=== PATIENT | female | born 1980 | race Caucasian/White ===

== ENCOUNTER 2016-08-03 22:14 | Emergency (ER) | payer OTHER ==
[~2016-08-03] VITALS: Ht 172.7 cm; Wt 78.6 kg
[~2016-08-03 22:14] MED LIST: AMITRIPTYLINE50 MG PO; BENTYL 20MG20 MG/TAB PO; CARDI-OMEGA1000 MG PO; CEFTIN500 MG PO; CEPHALEXIN500 M1 PO; CIPRO 500MG TA500 MG PO; CLARINEX 5MG5 MG PO; COLACE100 MG PO; D BIOTIN PO; DAYPRO600 MG PO; DEPAKOTE DR500 MG PO; DESYREL 100MG100 MG PO; DESYREL 50MG50 MG PO; DOXYCYCLINE 10100 MG PO; DULCOLAX S10 MG/SUPP RC; FLAGYL500 MG PO; FLEXERIL 1010 MG/TAB PO; GABAPENTIN300 M1 PO; LAMICTAL; LEVAQUIN 2250 MG/TAB PO; LEXAPRO 10MG10 MG PO; LINZESS290CAP PO; LIZNESS; LORTAB 5/500 501 TAB PO; MAXALT10 MG; MAXALT10 MG PO; MAXALT5 MG PO; MOTRIN 800800 MG/TAB PO; MS CONTIN 330 MG/TAB PO; NAPROSYN500 MG PO; NAPROXEN 3375 MG/TAB PO; NATURE'S BLEND1 SG3 PO; NEURONTIN; NEURONTIN300 MG/CAP PO; NO HOME MEDICATIONS; NORCO 325 MG-51 TAB PO; NORCO 325 MG-7.1 TAB PO; OSTEO-BI-FLEX 21 TAB PO; OXY IR5 MG PO; OXYCODONE; PARAFON FORTE500 M1 PO; PERCOCET 325 MG1 TA2 PO; PERCOCET 5/321 UDTAB PO; PHENERGAN 25 TA25 MG PO; PREDNISONE20 MG PO; PRILOTC; PROMETHAZINE12.5 M5 PO; PROTONIX 40MG T40 MG PO; REGLAN 10MG10 MG/TAB PO; SYNTHROID0.05 MG/TA PO; THEOPHYLINE; TOPAMAX100 MG PO; TOPAMAX200 MG PO; ULTRAM 50MG TAB50 MG PO; ZITHROMAX 250M250 MG PO; ZOFRAN 4MG T4 MG/TAB PO; ZOFRAN ODT8 MG PO
[2016-08-03 22:17] VITALS: BP 150/92; PULSE 90; TEMP 97.5
[2016-08-03 23:15] LABS: HEMATOCRIT 38.2 % (37.0-47.0); HEMOGLOBIN 12.5 g/dl (12.5-16.0); MEAN CELL VOLUME 98 fl (80.0-100.0); MEAN CORPUSCULAR HEMOGLOBIN 32 pg (27.0-31.0); MEAN CORPUSCULAR HGB CONC 33 g/dl (33.0-37.0); MEAN PLATELET VOLUME 10.9 fl (7.4-10.4); PLATELET COUNT 227 K/mm3 (130-400); RED BLOOD COUNT 3.91 M/mm3 (4.10-5.30); WHITE BLOOD COUNT 10.7 K/mm3 (4.8-10.8)
[2016-08-03] MEDS ORDERED: ULTRAM 50MG TAB50 MG PO (23:30)
[2016-08-03] MEDS ORDERED: ZOFRAN8 MG PO (23:30)
[2016-08-03 23:39] LABS: ADD PATHOLOGY DIFF REVIEW NO
[2016-08-03 23:48] LABS: ALBUMIN 4.1 gm/dL (3.5-5.0); BILIRUBIN,TOTAL 0.7 mg/dL (0.0-1.0); C-REACTIVE PROTEIN 0.8 mg/dL (0.0-0.9); CALCIUM 9.1 mg/dL (8.4-10.2); CREATININE, serum 0.68 mg/dL (0.52-1.25); POTASSIUM 3.8 mmol/L (3.4-5.0); TOTAL PROTEIN 7.5 gm/dL (6.4-8.2)
[2016-08-04 00:04] LABS: BAND 2 % (0-10); BASOPHIL 1 % (0-2); EOSINOPHIL 3 % (0-4); NEUTROPHILS 56 % (42.0-75.2); PLATELET ESTIMATE NORMAL (NORMAL); TOTAL CELLS COUNTED 100
[2016-08-04 00:27] LABS: ERYTHROCYTE SEDIMENTATION RATE 8 mm/hr (0-20)
== END 2016-08-04 00:47 | disposition home or self-care (01) ==
LOC: COL.ER 22:14
PROVIDERS: Emergency Medicine
DX: R10.31 Right lower quadrant pain (principal)
CPT/HCPCS: J1630; J1885; J2405; J7030

== ENCOUNTER 2016-08-07 22:17 | Emergency (ER) | payer OTHER ==
[~2016-08-07] VITALS: Ht 172.7 cm; Wt 78.6 kg
[~2016-08-07 22:17] MED LIST changes: +ZOFRAN8 MG PO
[2016-08-07 22:23] VITALS: TEMP 98.1
[2016-08-08 00:16] VITALS: BP 128/81; PULSE 77
== END 2016-08-08 00:19 | disposition home or self-care (01) ==
LOC: COL.ER 22:17
DX: R51 Headache (principal)
CPT/HCPCS: J1100; J1200; J1885; J2405; J2550; J2765; J7030

== ENCOUNTER 2016-08-13 21:35 | Emergency (ER) | payer OTHER ==
[~2016-08-13] VITALS: Ht 172.7 cm; Wt 78.6 kg
[2016-08-13 21:38] VITALS: BP 169/105; TEMP 97.9
[2016-08-13 23:01] VITALS: PULSE 88
== END 2016-08-13 23:02 | disposition home or self-care (01) ==
LOC: COL.ER 21:35
DX: G43.909 Migraine, unspecified, not intractable, without status migrainosus (principal); F17.210 Nicotine dependence, cigarettes, uncomplicated
CPT/HCPCS: J1200; J1885; J2060; J2550

== ENCOUNTER 2016-08-17 20:55 | Emergency (ER) | payer OTHER ==
[~2016-08-17] VITALS: Ht 172.7 cm; Wt 78.6 kg
[2016-08-17 21:02] VITALS: TEMP 98.1
[2016-08-17 22:21] LABS: BASO # 0.1 (0.0-0.2); BASO % 1.2 % (0.0-2.0); EOS # 0.4 (0.0-0.7); GRAN # 6.5 (1.4-6.5); GRAN % 56.4 % (42.2-75.2); HEMATOCRIT 40.9 % (37.0-47.0); HEMOGLOBIN 13.6 g/dl (12.5-16.0); LYMPH # 3.7 (1.2-3.4); LYMPH % 31.6 % (20.0-51.0); MEAN CELL VOLUME 97 fl (80.0-100.0); MEAN CORPUSCULAR HEMOGLOBIN 32 pg (27.0-31.0); MEAN CORPUSCULAR HGB CONC 33 g/dl (33.0-37.0); MEAN PLATELET VOLUME 11.2 fl (7.4-10.4); MONO # 0.9 (0.1-0.6); MONO % 7.4 % (1.7-9.3); PLATELET COUNT 256 K/mm3 (130-400); RED BLOOD COUNT 4.24 M/mm3 (4.10-5.30); REDCELL DISTRIBUTION WIDTH-CV 13.7 % (11.5-14.5); WHITE BLOOD COUNT 11.6 K/mm3 (4.8-10.8)
[2016-08-17 22:37] LABS: ADJUSTED CALCIUM 9.3 mg/dL (8.4-10.2); ALANINE AMINOTRANSFERASE 35 U/L (9-52); ALBUMIN 4.5 gm/dL (3.5-5.0); ALKALINE PHOSPHATASE 51 U/L (50-136); ANION GAP 11 mmol/L (7-16); BILIRUBIN,TOTAL 0.8 mg/dL (0.0-1.0); BLOOD UREA NITROGEN 8 mg/dL (7-17); CALCIUM 9.7 mg/dL (8.4-10.2); CARBON DIOXIDE 25 mmol/L (22-30); CHLORIDE 105 mmol/L (98-107); CREATININE, serum 0.72 mg/dL (0.52-1.25); GLUCOSE 85 mg/dL (74-106); LIPASE 65 U/L (23-300); POTASSIUM 3.8 mmol/L (3.4-5.0); SODIUM 141 mmol/L (137-145); TOTAL PROTEIN 8.1 gm/dL (6.4-8.2)
[2016-08-17 22:47] LABS: TROPONIN-I < 0.012 ng/mL (0.000-0.034)
[2016-08-17] MEDS ORDERED: PROTONIX 40MG T40 MG PO (22:54)
[2016-08-17 23:07] VITALS: BP 131/94; PULSE 96
== END 2016-08-17 23:08 | disposition home or self-care (01) ==
LOC: COL.ER 20:55
PROVIDERS: Emergency Medicine
DX: R07.9 Chest pain, unspecified (principal); G43.909 Migraine, unspecified, not intractable, without status migrainosus; F17.210 Nicotine dependence, cigarettes, uncomplicated

== ENCOUNTER 2016-08-24 21:57 | Emergency (ER) | payer SELFPAY ==
[~2016-08-24] VITALS: Ht 172.7 cm; Wt 78.6 kg
[2016-08-24 22:09] VITALS: BP 141/75; PULSE 111; TEMP 97.9
== END 2016-08-24 23:29 | disposition left against medical advice (07) ==
LOC: COL.ER 21:57
DX: Z53.9 Procedure and treatment not carried out, unspecified reason (principal)

== ENCOUNTER 2016-09-02 17:58 | Emergency (ER) | payer OTHER ==
[~2016-09-02] VITALS: Ht 172.7 cm; Wt 90.9 kg
[2016-09-02 18:00] VITALS: TEMP 98.1
[2016-09-02 19:01] VITALS: BP 141/65; PULSE 91
== END 2016-09-02 19:02 | disposition home or self-care (01) ==
LOC: COL.ER 17:58
DX: G43.909 Migraine, unspecified, not intractable, without status migrainosus (principal); F17.210 Nicotine dependence, cigarettes, uncomplicated
CPT/HCPCS: J1885

== ENCOUNTER 2016-09-06 11:12 | Emergency (ER) | payer OTHER ==
[~2016-09-06] VITALS: Ht 172.7 cm; Wt 78.6 kg
[2016-09-06 11:14] VITALS: TEMP 98.3
[2016-09-06 11:50] LABS: BASO # 0.1 (0.0-0.2); BASO % 1.1 % (0.0-2.0); EOS # 0.3 (0.0-0.7); EOS % 2.9 % (0-4.0); GRAN # 6.6 (1.4-6.5); GRAN % 62.1 % (42.2-75.2); HEMATOCRIT 37.5 % (37.0-47.0); HEMOGLOBIN 12.6 g/dl (12.5-16.0); LYMPH # 2.6 (1.2-3.4); LYMPH % 24.8 % (20.0-51.0); MEAN CELL VOLUME 96 fl (80.0-100.0); MEAN CORPUSCULAR HEMOGLOBIN 32 pg (27.0-31.0); MEAN CORPUSCULAR HGB CONC 34 g/dl (33.0-37.0); MONO # 0.9 (0.1-0.6); MONO % 8.6 % (1.7-9.3); PLATELET COUNT 227 K/mm3 (130-400); RED BLOOD COUNT 3.89 M/mm3 (4.10-5.30); REDCELL DISTRIBUTION WIDTH-CV 14.5 % (11.5-14.5); WHITE BLOOD COUNT 10.6 K/mm3 (4.8-10.8)
[2016-09-06 11:56] LABS: INR 1.1 (0.8-3.0); PROTHROMBIN TIME 11.9 SECONDS (9.7-12.8)
[2016-09-06 11:59] LABS: PARTIAL THROMBOPLASTIN TIME 29.6 SECONDS (26.0-37.0)
[2016-09-06 12:36] LABS: ADJUSTED CALCIUM 9.6 mg/dL (8.4-10.2); ALANINE AMINOTRANSFERASE 32 U/L (9-52); ALBUMIN 4.1 gm/dL (3.5-5.0); ALKALINE PHOSPHATASE 48 U/L (50-136); ANION GAP 13 mmol/L (7-16); BILIRUBIN,TOTAL 0.6 mg/dL (0.0-1.0); BLOOD UREA NITROGEN 10 mg/dL (7-17); CALCIUM 9.7 mg/dL (8.4-10.2); CARBON DIOXIDE 21 mmol/L (22-30); CHLORIDE 104 mmol/L (98-107); CREATININE, serum 0.73 mg/dL (0.52-1.25); GLUCOSE 84 mg/dL (74-106); POTASSIUM 4.2 mmol/L (3.4-5.0); SODIUM 139 mmol/L (137-145); TOTAL PROTEIN 7.6 gm/dL (6.4-8.2)
[2016-09-06 12:49] LABS: TROPONIN-I < 0.012 ng/mL (0.000-0.034)
[2016-09-06 14:15] VITALS: BP 114/80; PULSE 76
== END 2016-09-06 14:15 | disposition home or self-care (01) ==
LOC: COL.ER 11:12
PROVIDERS: Family Medicine
DX: R07.9 Chest pain, unspecified (principal); R00.0 Tachycardia, unspecified
CPT/HCPCS: J2270

== ENCOUNTER 2016-09-13 21:45 | Emergency (ER) | payer OTHER ==
[~2016-09-13] VITALS: Ht 172.7 cm; Wt 78.6 kg
[2016-09-13 21:52] VITALS: TEMP 98.1
[2016-09-13] MEDS ORDERED: ULTRAM 50MG TAB50 MG PO (22:32)
[2016-09-13 23:00] LABS: BASO # 0.1 (0.0-0.2); BASO % 1.3 % (0.0-2.0); EOS # 0.5 (0.0-0.7); EOS % 5.1 % (0-4.0); GRAN # 4.4 (1.4-6.5); GRAN % 46.3 % (42.2-75.2); LYMPH # 3.8 (1.2-3.4); LYMPH % 40.1 % (20.0-51.0); MEAN CELL VOLUME 97 fl (80.0-100.0); MEAN CORPUSCULAR HGB CONC 33 g/dl (33.0-37.0); MONO # 0.6 (0.1-0.6); MONO % 6.8 % (1.7-9.3); PLATELET COUNT 253 K/mm3 (130-400); RED BLOOD COUNT 3.58 M/mm3 (4.10-5.30); REDCELL DISTRIBUTION WIDTH-CV 14.6 % (11.5-14.5); WHITE BLOOD COUNT 9.4 K/mm3 (4.8-10.8)
[2016-09-13 23:17] LABS: HEMATOCRIT 34.8 % (37.0-47.0); HEMOGLOBIN 11.5 g/dl (12.5-16.0); MEAN CORPUSCULAR HEMOGLOBIN 32 pg (27.0-31.0)
[2016-09-13 23:30] LABS: PROTHROMBIN TIME 10.8 SECONDS (9.7-12.8)
[2016-09-13 23:59] VITALS: BP 138/88; PULSE 80
== END 2016-09-13 23:58 | disposition home or self-care (01) ==
LOC: COL.ER 21:45
PROVIDERS: Emergency Medicine
DX: M25.572 Pain in left ankle and joints of left foot (principal)
CPT/HCPCS: J1885

== ENCOUNTER 2016-09-23 22:15 | Emergency (ER) | payer SELFPAY ==
[~2016-09-23] VITALS: Ht 172.7 cm; Wt 78.6 kg
[2016-09-23 22:18] VITALS: TEMP 98
[2016-09-23 23:59] VITALS: BP 133/95; PULSE 95
[2016-09-25] MEDS ORDERED: ZOFRAN 4MG T4 MG/TAB PO (23:13)
== END 2016-09-24 | disposition home or self-care (01) ==
LOC: COL.ER 22:15
DX: G43.909 Migraine, unspecified, not intractable, without status migrainosus (principal)
CPT/HCPCS: J1200; J1885; J2765

== ENCOUNTER 2016-09-25 21:18 | Emergency (ER) | payer SELFPAY ==
[~2016-09-25] VITALS: Ht 172.7 cm; Wt 78.6 kg
[2016-09-25 21:20] VITALS: BP 133/82; PULSE 95; TEMP 97.8
[2016-09-25 22:09] LABS: BASO # 0.2 (0.0-0.2); BASO % 1.3 % (0.0-2.0); EOS # 0.5 (0.0-0.7); GRAN # 7.5 (1.4-6.5); GRAN % 55.5 % (42.2-75.2); HEMATOCRIT 37.5 % (37.0-47.0); HEMOGLOBIN 12.5 g/dl (12.5-16.0); LYMPH # 4.1 (1.2-3.4); LYMPH % 30.3 % (20.0-51.0); MEAN CELL VOLUME 97 fl (80.0-100.0); MEAN CORPUSCULAR HEMOGLOBIN 33 pg (27.0-31.0); MEAN CORPUSCULAR HGB CONC 33 g/dl (33.0-37.0); MONO # 1.2 (0.1-0.6); MONO % 8.5 % (1.7-9.3); PLATELET COUNT 237 K/mm3 (130-400); RED BLOOD COUNT 3.85 M/mm3 (4.10-5.30); WHITE BLOOD COUNT 13.5 K/mm3 (4.8-10.8)
[2016-09-25 22:22] LABS: ADJUSTED CALCIUM 9.8 mg/dL (8.4-10.2); ALBUMIN 3.9 gm/dL (3.5-5.0); BILIRUBIN,TOTAL 0.4 mg/dL (0.0-1.0); C-REACTIVE PROTEIN 0.9 mg/dL (0.0-0.9); CALCIUM 9.7 mg/dL (8.4-10.2); CREATININE, serum 0.76 mg/dL (0.52-1.25); POTASSIUM 4.1 mmol/L (3.4-5.0); TOTAL PROTEIN 7.4 gm/dL (6.4-8.2)
[2016-09-25 22:32] LABS: PH 5 (5-8); URINE APPEARANCE Hazy; URINE BACTERIA None Seen /hpf; URINE BILIRUBIN Negative (NEGATIVE); URINE BLOOD Negative (NEGATIVE); URINE COLOR Yellow; URINE GLUCOSE Negative (NEGATIVE); URINE KETONE Negative (NEGATIVE); URINE RBC 0-2 /hpf; URINE UROBILINOGEN Negative (NEGATIVE)
[2016-09-25] MEDS ORDERED: ZOFRAN 4MG T4 MG/TAB PO (23:13)
== END 2016-09-25 23:40 | disposition home or self-care (01) ==
LOC: COL.ER 21:18
PROVIDERS: Emergency Medicine
DX: R10.84 Generalized abdominal pain (principal); R11.2 Nausea with vomiting, unspecified; R19.7 Diarrhea, unspecified
CPT/HCPCS: J1170; J2405; J2550; Q9967

== ENCOUNTER 2016-09-29 19:57 | Emergency (ER) | payer SELFPAY ==
[~2016-09-29] VITALS: Ht 172.7 cm; Wt 78.6 kg
[2016-09-29 20:03] VITALS: TEMP 97.9
[2016-09-29 21:40] LABS: BASO # 0.1 (0.0-0.2); EOS # 0.4 (0.0-0.7); EOS % 3.4 % (0-4.0); GRAN # 6.2 (1.4-6.5); HEMATOCRIT 37.9 % (37.0-47.0); HEMOGLOBIN 12.4 g/dl (12.5-16.0); LYMPH # 3.1 (1.2-3.4); LYMPH % 28.9 % (20.0-51.0); MEAN CELL VOLUME 98 fl (80.0-100.0); MEAN CORPUSCULAR HEMOGLOBIN 32 pg (27.0-31.0); MEAN CORPUSCULAR HGB CONC 33 g/dl (33.0-37.0); MEAN PLATELET VOLUME 10.9 fl (7.4-10.4); MONO # 0.9 (0.1-0.6); MONO % 8.2 % (1.7-9.3); PLATELET COUNT 227 K/mm3 (130-400); RED BLOOD COUNT 3.87 M/mm3 (4.10-5.30); REDCELL DISTRIBUTION WIDTH-CV 14.9 % (11.5-14.5); WHITE BLOOD COUNT 10.8 K/mm3 (4.8-10.8)
[2016-09-29 22:18] LABS: PH 6 (5-8); SQUAMOUS EPITHELIAL 0-2 /hpf; URINE APPEARANCE Clear; URINE BACTERIA None Seen /hpf; URINE BILIRUBIN Negative (NEGATIVE); URINE BLOOD Negative (NEGATIVE); URINE COLOR Yellow; URINE GLUCOSE Negative (NEGATIVE); URINE KETONE Negative (NEGATIVE); URINE RBC 0-2 /hpf; URINE UROBILINOGEN Negative (NEGATIVE); URINE WBC 0-2 /hpf
[2016-09-29 22:54] VITALS: BP 128/89; PULSE 96
== END 2016-09-29 22:58 | disposition home or self-care (01) ==
LOC: COL.ER 19:57
PROVIDERS: Emergency Medicine
DX: N83.201 Unspecified ovarian cyst, right side (principal); K52.9 Noninfective gastroenteritis and colitis, unspecified
CPT/HCPCS: J1170; J2550

== ENCOUNTER 2016-10-19 20:50 | Emergency (ER) | payer SELFPAY ==
[~2016-10-19] VITALS: Ht 172.7 cm; Wt 78.6 kg
[2016-10-19 20:58] VITALS: BP 121/82; TEMP 97.5
[2016-10-20] VITALS: PULSE 80
== END 2016-10-20 00:02 | disposition home or self-care (01) ==
LOC: COL.ER 20:50
DX: R51 Headache (principal)
CPT/HCPCS: J1200; J1630; J1885; J3030

== ENCOUNTER 2016-10-25 19:00 | Emergency (ER) | payer SELFPAY ==
[~2016-10-25] VITALS: Ht 172.7 cm; Wt 78.6 kg
[2016-10-25 19:02] VITALS: TEMP 98
[2016-10-25 22:33] LABS: PH 6 (5-8); SQUAMOUS EPITHELIAL 0-2 /hpf; URINE APPEARANCE Clear; URINE BACTERIA None Seen /hpf; URINE BILIRUBIN Negative (NEGATIVE); URINE BLOOD Negative (NEGATIVE); URINE COLOR Yellow; URINE GLUCOSE Negative (NEGATIVE); URINE KETONE Negative (NEGATIVE); URINE RBC 0-2 /hpf; URINE UROBILINOGEN Negative (NEGATIVE)
[2016-10-25 22:41] LABS: BASO # 0.1 (0.0-0.2); BASO % 1.1 % (0.0-2.0); EOS # 0.3 (0.0-0.7); EOS % 2.9 % (0-4.0); GRAN # 6.6 (1.4-6.5); GRAN % 58.4 % (42.2-75.2); HEMATOCRIT 41.4 % (37.0-47.0); HEMOGLOBIN 13.9 g/dl (12.5-16.0); LYMPH # 3.5 (1.2-3.4); LYMPH % 30.5 % (20.0-51.0); MEAN CELL VOLUME 98 fl (80.0-100.0); MEAN CORPUSCULAR HEMOGLOBIN 33 pg (27.0-31.0); MEAN CORPUSCULAR HGB CONC 34 g/dl (33.0-37.0); MEAN PLATELET VOLUME 11.4 fl (7.4-10.4); MONO # 0.8 (0.1-0.6); MONO % 6.8 % (1.7-9.3); PLATELET COUNT 226 K/mm3 (130-400); RED BLOOD COUNT 4.22 M/mm3 (4.10-5.30); REDCELL DISTRIBUTION WIDTH-CV 13.9 % (11.5-14.5); WHITE BLOOD COUNT 11.3 K/mm3 (4.8-10.8)
[2016-10-25 22:53] LABS: ADJUSTED CALCIUM 9.2 mg/dL (8.4-10.2); ALBUMIN 4.4 gm/dL (3.5-5.0); BILIRUBIN,TOTAL 0.7 mg/dL (0.0-1.0); C-REACTIVE PROTEIN 0.7 mg/dL (0.0-0.9); CALCIUM 9.5 mg/dL (8.4-10.2); CREATININE, serum 0.69 mg/dL (0.52-1.25); POTASSIUM 4.1 mmol/L (3.4-5.0); TOTAL PROTEIN 8.2 gm/dL (6.4-8.2)
[2016-10-26 00:36] VITALS: BP 130/60; PULSE 80
== END 2016-10-26 00:49 | disposition home or self-care (01) ==
LOC: COL.ER 19:00
PROVIDERS: Emergency Medicine
DX: R10.11 Right upper quadrant pain (principal); R10.31 Right lower quadrant pain; Z90.49 Acquired absence of other specified parts of digestive tract
CPT/HCPCS: J1170; J1885; J2550; J7030

== ENCOUNTER 2016-10-29 18:27 | Emergency (ER) | payer SELFPAY ==
[~2016-10-29] VITALS: Ht 172.7 cm; Wt 78.6 kg
[2016-10-29 18:30] VITALS: TEMP 98.1
[2016-10-29 19:15] LABS: PH 6 (5-8); SQUAMOUS EPITHELIAL None Seen /hpf; URINE APPEARANCE Clear; URINE BACTERIA Rare /hpf; URINE BILIRUBIN Negative (NEGATIVE); URINE BLOOD 2+ (NEGATIVE); URINE COLOR Yellow; URINE GLUCOSE Negative (NEGATIVE); URINE KETONE Negative (NEGATIVE); URINE RBC 0-2 /hpf; URINE UROBILINOGEN Negative (NEGATIVE); URINE WBC 0-2 /hpf
[2016-10-29 19:26] LABS: BASO # 0.1 (0.0-0.2); EOS # 0.3 (0.0-0.7); EOS % 2.7 % (0-4.0); GRAN # 6.5 (1.4-6.5); GRAN % 57.6 % (42.2-75.2); HEMATOCRIT 39.7 % (37.0-47.0); HEMOGLOBIN 13.2 g/dl (12.5-16.0); LYMPH # 3.5 (1.2-3.4); LYMPH % 31.2 % (20.0-51.0); MEAN CELL VOLUME 98 fl (80.0-100.0); MEAN CORPUSCULAR HEMOGLOBIN 33 pg (27.0-31.0); MEAN CORPUSCULAR HGB CONC 33 g/dl (33.0-37.0); MEAN PLATELET VOLUME 11.1 fl (7.4-10.4); MONO # 0.8 (0.1-0.6); PLATELET COUNT 243 K/mm3 (130-400); RED BLOOD COUNT 4.06 M/mm3 (4.10-5.30); REDCELL DISTRIBUTION WIDTH-CV 13.5 % (11.5-14.5); WHITE BLOOD COUNT 11.3 K/mm3 (4.8-10.8)
[2016-10-29 19:37] LABS: ADJUSTED CALCIUM 9.3 mg/dL (8.4-10.2); ALBUMIN 4.2 gm/dL (3.5-5.0); BILIRUBIN,TOTAL 0.6 mg/dL (0.0-1.0); C-REACTIVE PROTEIN 0.5 mg/dL (0.0-0.9); CALCIUM 9.5 mg/dL (8.4-10.2); CREATININE, serum 0.67 mg/dL (0.52-1.25); POTASSIUM 3.6 mmol/L (3.4-5.0); TOTAL PROTEIN 7.7 gm/dL (6.4-8.2)
[2016-10-29] MEDS ORDERED: PHENERGAN 25 TA25 MG PO (21:58)
[2016-10-29 22:34] VITALS: BP 161/87; PULSE 91
== END 2016-10-29 22:34 | disposition home or self-care (01) ==
LOC: COL.ER 18:27
PROVIDERS: Emergency Medicine
DX: R10.31 Right lower quadrant pain (principal)
CPT/HCPCS: J1200; J1630; J7030; Q9967

== ENCOUNTER → 2016-11-10 | Emergency (ER) | payer SELFPAY ==
[~2016-11-10] VITALS: Ht 172.7 cm; Wt 78.6 kg
[~2016-11-10] MED LIST changes: +CARAFATE 1GM1 G PO; +CELEBREX 1100 MG/CAP PO; +ZOFRAN ODT4 MG PO
[2016-11-10 19:46] VITALS: BP 121/57; PULSE 101; TEMP 98.2
== END | disposition left against medical advice (07) ==
LOC: COL.ER 19:36
DX: M25.551 Pain in right hip (principal); Z53.21 Procedure and treatment not carried out due to patient leaving prior to being seen by health care provider

== ENCOUNTER 2016-11-19 18:45 | Emergency (ER) | payer SELFPAY ==
[~2016-11-19] VITALS: Ht 172.7 cm; Wt 85.9 kg
[~2016-11-19 18:45] MED LIST changes: -CARAFATE 1GM1 G PO; -CELEBREX 1100 MG/CAP PO; -ZOFRAN ODT4 MG PO
[2016-11-19 18:47] VITALS: TEMP 97.8
[2016-11-19] MEDS ORDERED: PHENERGAN 25 TA25 MG PO (18:50)
[2016-11-19 19:33] LABS: PH 6 (5-8); SQUAMOUS EPITHELIAL None Seen /hpf; URINE APPEARANCE Clear; URINE BACTERIA None Seen /hpf; URINE BILIRUBIN Negative (NEGATIVE); URINE BLOOD Negative (NEGATIVE); URINE COLOR Straw; URINE GLUCOSE Negative (NEGATIVE); URINE KETONE Negative (NEGATIVE); URINE RBC 0-2 /hpf; URINE UROBILINOGEN Negative (NEGATIVE)
[2016-11-19 21:40] LABS: BASO # 0.2 (0.0-0.2); BASO % 1.2 % (0.0-2.0); EOS # 0.5 (0.0-0.7); EOS % 3.7 % (0-4.0); GRAN # 7.4 (1.4-6.5); GRAN % 57.8 % (42.2-75.2); HEMATOCRIT 39.2 % (37.0-47.0); LYMPH # 3.8 (1.2-3.4); LYMPH % 30.2 % (20.0-51.0); MEAN CELL VOLUME 99 fl (80.0-100.0); MEAN CORPUSCULAR HEMOGLOBIN 33 pg (27.0-31.0); MEAN CORPUSCULAR HGB CONC 33 g/dl (33.0-37.0); MONO # 0.9 (0.1-0.6); MONO % 6.8 % (1.7-9.3); PLATELET COUNT 233 K/mm3 (130-400); RED BLOOD COUNT 3.97 M/mm3 (4.10-5.30); REDCELL DISTRIBUTION WIDTH-CV 12.7 % (11.5-14.5); WHITE BLOOD COUNT 12.7 K/mm3 (4.8-10.8)
[2016-11-19 21:50] LABS: ADJUSTED CALCIUM 9.3 mg/dL (8.4-10.2); ALBUMIN 4.2 gm/dL (3.5-5.0); BILIRUBIN,TOTAL 0.6 mg/dL (0.0-1.0); CALCIUM 9.5 mg/dL (8.4-10.2); CREATININE, serum 0.66 mg/dL (0.52-1.25); TOTAL PROTEIN 7.6 gm/dL (6.4-8.2)
[2016-11-19 22:32] VITALS: BP 121/79; PULSE 88
== END 2016-11-19 22:32 | disposition home or self-care (01) ==
LOC: COL.ER 18:45
PROVIDERS: Nurse Practitioner
DX: R10.11 Right upper quadrant pain (principal); R10.31 Right lower quadrant pain; R11.0 Nausea; G89.29 Other chronic pain; F17.210 Nicotine dependence, cigarettes, uncomplicated; K58.9 Irritable bowel syndrome, unspecified
CPT/HCPCS: J1885

== ENCOUNTER 2016-11-28 17:00 | Emergency (ER) | payer SELFPAY ==
[~2016-11-28] VITALS: Ht 172.7 cm; Wt 85.9 kg
[2016-11-28 17:13] VITALS: BP 149/86; TEMP 98.1
[2016-11-28 18:58] VITALS: PULSE 79
== END 2016-11-28 18:59 | disposition home or self-care (01) ==
LOC: COL.ER 17:00
DX: M25.512 Pain in left shoulder (principal); F17.210 Nicotine dependence, cigarettes, uncomplicated
CPT/HCPCS: J1885; J2360

== ENCOUNTER 2016-12-01 16:39 | Emergency (ER) | payer OTHER ==
[~2016-12-01] VITALS: Ht 172.7 cm; Wt 85.9 kg
[2016-12-01 16:43] VITALS: TEMP 98.1
[2016-12-01 17:57] VITALS: BP 111/65; PULSE 92
== END 2016-12-01 17:59 | disposition home or self-care (01) ==
LOC: COL.ER 16:39
DX: S43.402A Unspecified sprain of left shoulder joint, initial encounter (principal); X50.9XXA Other and unspecified overexertion or strenuous movements or postures, initial encounter

== ENCOUNTER 2016-12-14 00:03 | Emergency (ER) | payer SELFPAY ==
[~2016-12-14] VITALS: Ht 172.7 cm; Wt 89.1 kg
[2016-12-14 00:05] VITALS: TEMP 98.7
[2016-12-14 01:31] VITALS: BP 128/83; PULSE 92
== END 2016-12-14 01:32 | disposition home or self-care (01) ==
LOC: COL.ER 00:03
DX: R51 Headache (principal); G43.909 Migraine, unspecified, not intractable, without status migrainosus; F17.210 Nicotine dependence, cigarettes, uncomplicated
CPT/HCPCS: J1200; J1885; J2765; J7030

== ENCOUNTER 2017-01-17 19:10 | Emergency (ER) | payer SELFPAY ==
[~2017-01-17] VITALS: Ht 172.7 cm; Wt 89.1 kg
[2017-01-17 19:14] VITALS: BP 124/63; TEMP 98.1
[2017-01-17] MEDS ORDERED: CELEBREX 1100 MG/CAP PO (19:18)
[2017-01-17] MEDS ORDERED: FLEXERIL 1010 MG/TAB PO (19:19)
[2017-01-17 20:36] VITALS: PULSE 89
== END 2017-01-17 20:37 | disposition home or self-care (01) ==
LOC: COL.ER 19:10
DX: M25.512 Pain in left shoulder (principal); F32.9 Major depressive disorder, single episode, unspecified
CPT/HCPCS: J1170; J1885

== ENCOUNTER 2017-01-20 21:02 | Emergency (ER) | payer SELFPAY ==
[~2017-01-20] VITALS: Ht 172.7 cm; Wt 89.1 kg
[~2017-01-20 21:02] MED LIST changes: +CELEBREX 1100 MG/CAP PO
[2017-01-20 21:06] VITALS: BP 136/82; PULSE 107; TEMP 98.1
== END 2017-01-20 22:33 | disposition left against medical advice (07) ==
LOC: COL.ER 21:02
DX: M25.512 Pain in left shoulder (principal); Z53.21 Procedure and treatment not carried out due to patient leaving prior to being seen by health care provider

== ENCOUNTER 2017-01-27 19:49 | Emergency (ER) | payer SELFPAY ==
[~2017-01-27] VITALS: Ht 172.7 cm; Wt 89.1 kg
[2017-01-27 19:53] VITALS: TEMP 97.9
[2017-01-27] MEDS ORDERED: NORCO 325 MG-51 TAB PO (19:56)
[2017-01-27 20:31] LABS: BASO # 0.2 (0.0-0.2); BASO % 1.2 % (0.0-2.0); EOS # 0.4 (0.0-0.7); EOS % 3.7 % (0-4.0); GRAN % 58.1 % (42.2-75.2); HEMOGLOBIN 12.9 g/dl (12.5-16.0); LYMPH # 3.2 (1.2-3.4); LYMPH % 26.4 % (20.0-51.0); MEAN CELL VOLUME 96 fl (80.0-100.0); MEAN CORPUSCULAR HEMOGLOBIN 32 pg (27.0-31.0); MEAN CORPUSCULAR HGB CONC 33 g/dl (33.0-37.0); MEAN PLATELET VOLUME 10.6 fl (7.4-10.4); MONO # 1.2 (0.1-0.6); MONO % 9.8 % (1.7-9.3); PLATELET COUNT 245 K/mm3 (130-400); RED BLOOD COUNT 4.05 M/mm3 (4.10-5.30); REDCELL DISTRIBUTION WIDTH-CV 13.4 % (11.5-14.5); WHITE BLOOD COUNT 12.1 K/mm3 (4.8-10.8)
[2017-01-27 20:59] LABS: ADJUSTED CALCIUM 8.5 mg/dL (8.4-10.2); BILIRUBIN,TOTAL 0.4 mg/dL (0.0-1.0); C-REACTIVE PROTEIN 0.7 mg/dL (0.0-0.9); CALCIUM 8.5 mg/dL (8.4-10.2); CREATININE, serum 0.68 mg/dL (0.52-1.25); TOTAL PROTEIN 7.1 gm/dL (6.4-8.2)
[2017-01-27] MEDS ORDERED: ZOFRAN ODT4 MG PO (21:13)
[2017-01-27] MEDS ORDERED: PROTONIX 40MG T40 MG PO (21:13)
[2017-01-27] MEDS ORDERED: CARAFATE 1GM1 G PO (21:13)
[2017-01-27 21:41] VITALS: BP 122/77; PULSE 88
== END 2017-01-27 21:42 | disposition home or self-care (01) ==
LOC: COL.ER 19:49
PROVIDERS: Emergency Medicine
DX: R10.13 Epigastric pain (principal); R11.2 Nausea with vomiting, unspecified; G43.909 Migraine, unspecified, not intractable, without status migrainosus; E03.9 Hypothyroidism, unspecified; F43.10 Post-traumatic stress disorder, unspecified; F32.9 Major depressive disorder, single episode, unspecified; K58.9 Irritable bowel syndrome, unspecified; F41.9 Anxiety disorder, unspecified; G89.29 Other chronic pain; M54.2 Cervicalgia; M54.9 Dorsalgia, unspecified; F17.210 Nicotine dependence, cigarettes, uncomplicated; Z98.890 Other specified postprocedural states; Z90.49 Acquired absence of other specified parts of digestive tract; Z98.51 Tubal ligation status; Z90.12 Acquired absence of left breast and nipple
CPT/HCPCS: J1170; J2405; J7030

== ENCOUNTER 2017-03-12 20:42 | Emergency (ER) | payer SELFPAY ==
[~2017-03-12] VITALS: Ht 172.7 cm; Wt 98.8 kg
[~2017-03-12 20:42] MED LIST changes: +CARAFATE 1GM1 G PO; +ZOFRAN ODT4 MG PO
[2017-03-12 20:44] VITALS: TEMP 98.4
[2017-03-12 22:46] LABS: CALCIUM 9.1 mg/dL (8.4-10.2); CREATININE, serum 0.65 mg/dL (0.52-1.25); POTASSIUM 3.8 mmol/L (3.4-5.0)
[2017-03-12] MEDS ORDERED: FLEXERIL 1010 MG/TAB PO (23:10)
[2017-03-12] MEDS ORDERED: NORCO 325 MG-51 TAB PO (23:10)
[2017-03-12 23:30] VITALS: BP 133/90; PULSE 92
== END 2017-03-12 23:31 | disposition home or self-care (01) ==
LOC: COL.ER 20:42
PROVIDERS: Emergency Medicine
DX: M54.6 Pain in thoracic spine (principal); R07.9 Chest pain, unspecified; E03.9 Hypothyroidism, unspecified; F17.200 Nicotine dependence, unspecified, uncomplicated

== ENCOUNTER 2017-04-15 19:31 | Emergency (ER) | payer SELFPAY ==
[~2017-04-15] VITALS: Ht 172.7 cm; Wt 99.1 kg
[2017-04-15 19:34] VITALS: BP 145/73; TEMP 98.3
[2017-04-15 20:42] LABS: BASO # 0.1 (0.0-0.2); BASO % 0.9 % (0.0-2.0); EOS # 0.4 (0.0-0.7); EOS % 3.3 % (0-4.0); GRAN # 7.5 (1.4-6.5); GRAN % 58.4 % (42.2-75.2); HEMATOCRIT 38.1 % (37.0-47.0); HEMOGLOBIN 12.6 g/dl (12.5-16.0); LYMPH # 3.9 (1.2-3.4); LYMPH % 30.1 % (20.0-51.0); MEAN CELL VOLUME 97 fl (80.0-100.0); MEAN CORPUSCULAR HEMOGLOBIN 32 pg (27.0-31.0); MEAN CORPUSCULAR HGB CONC 33 g/dl (33.0-37.0); MEAN PLATELET VOLUME 10.5 fl (7.4-10.4); MONO # 0.9 (0.1-0.6); MONO % 6.8 % (1.7-9.3); PLATELET COUNT 274 K/mm3 (130-400); RED BLOOD COUNT 3.94 M/mm3 (4.10-5.30); REDCELL DISTRIBUTION WIDTH-CV 13.8 % (11.5-14.5); WHITE BLOOD COUNT 12.8 K/mm3 (4.8-10.8)
[2017-04-15 20:45] LABS: PH 7 (5-8); SQUAMOUS EPITHELIAL 0-2 /hpf; URINE APPEARANCE Clear; URINE BACTERIA None Seen /hpf; URINE BILIRUBIN Negative (NEGATIVE); URINE BLOOD Negative (NEGATIVE); URINE COLOR Yellow; URINE GLUCOSE Negative (NEGATIVE); URINE KETONE Trace (NEGATIVE); URINE UROBILINOGEN >=4.0 mg/dL (NEGATIVE); URINE WBC 0-2 /hpf
[2017-04-15 20:52] LABS: ADJUSTED CALCIUM 9.2 mg/dL (8.4-10.2); BILIRUBIN,TOTAL 0.3 mg/dL (0.0-1.0); C-REACTIVE PROTEIN 1.5 mg/dL (0.0-0.9); CALCIUM 9.2 mg/dL (8.4-10.2); CREATININE, serum 0.74 mg/dL (0.52-1.25); POTASSIUM 3.9 mmol/L (3.4-5.0); TOTAL PROTEIN 7.4 gm/dL (6.4-8.2)
[2017-04-15] MEDS ORDERED: ZOFRAN ODT4 MG PO (21:51)
[2017-04-15] MEDS ORDERED: NORCO 325 MG-51 TAB PO (21:51)
[2017-04-15] MEDS ORDERED: PHENERGAN 25 TA25 MG PO (22:37)
[2017-04-15 22:40] VITALS: PULSE 87
== END 2017-04-15 22:41 | disposition home or self-care (01) ==
LOC: COL.ER 19:31
PROVIDERS: Nurse Practitioner
DX: R10.30 Lower abdominal pain, unspecified (principal); K58.9 Irritable bowel syndrome, unspecified; F17.210 Nicotine dependence, cigarettes, uncomplicated; Z90.49 Acquired absence of other specified parts of digestive tract; Z98.51 Tubal ligation status
CPT/HCPCS: J1170; J2405; J2550; J3010; J7030; Q9967

== ENCOUNTER 2017-06-02 17:42 | Emergency (ER) | payer SELFPAY ==
[~2017-06-02] VITALS: Ht 172.7 cm; Wt 99.1 kg
[2017-06-02 17:45] VITALS: BP 136/68; TEMP 98.1
[2017-06-02 19:35] LABS: BASO # 0.1 (0.0-0.2); BASO % 1.1 % (0.0-2.0); EOS # 0.5 (0.0-0.7); EOS % 4.2 % (0-4.0); GRAN # 7.5 (1.4-6.5); GRAN % 59.7 % (42.2-75.2); HEMATOCRIT 40.6 % (37.0-47.0); HEMOGLOBIN 13.4 g/dl (12.5-16.0); LYMPH # 3.5 (1.2-3.4); MEAN CELL VOLUME 97 fl (80.0-100.0); MEAN CORPUSCULAR HEMOGLOBIN 32 pg (27.0-31.0); MEAN CORPUSCULAR HGB CONC 33 g/dl (33.0-37.0); MEAN PLATELET VOLUME 11.1 fl (7.4-10.4); MONO # 0.8 (0.1-0.6); MONO % 6.4 % (1.7-9.3); PLATELET COUNT 253 K/mm3 (130-400); RED BLOOD COUNT 4.19 M/mm3 (4.10-5.30); WHITE BLOOD COUNT 12.6 K/mm3 (4.8-10.8)
[2017-06-02 19:41] LABS: ADJUSTED CALCIUM 9.2 mg/dL (8.4-10.2); ALBUMIN 4.3 gm/dL (3.5-5.0); BILIRUBIN,TOTAL 0.4 mg/dL (0.0-1.0); CALCIUM 9.4 mg/dL (8.4-10.2); CREATININE, serum 0.64 mg/dL (0.52-1.25); POTASSIUM 3.6 mmol/L (3.4-5.0); TOTAL PROTEIN 7.6 gm/dL (6.4-8.2)
[2017-06-02 20:47] VITALS: PULSE 89
== END 2017-06-02 20:48 | disposition home or self-care (01) ==
LOC: COL.ER 17:42
PROVIDERS: Physician Assistant
DX: K29.70 Gastritis, unspecified, without bleeding (principal); K58.9 Irritable bowel syndrome, unspecified; Z90.49 Acquired absence of other specified parts of digestive tract
CPT/HCPCS: J1885; J2550

== ENCOUNTER 2017-07-04 19:42 | Emergency (ER) | payer SELFPAY ==
[~2017-07-04] VITALS: Ht 172.7 cm; Wt 97.3 kg
[2017-07-04 19:46] VITALS: BP 144/83; TEMP 97.6
[2017-07-04 20:44] LABS: COLLECTION METHOD CLEAN CATCH
[2017-07-04 20:48] LABS: BASO # 0.1 (0.0-0.2); EOS # 0.3 (0.0-0.7); EOS % 2.3 % (0-4.0); GRAN # 8.4 (1.4-6.5); GRAN % 62.9 % (42.2-75.2); HEMATOCRIT 40.1 % (37.0-47.0); HEMOGLOBIN 13.3 g/dl (12.5-16.0); LYMPH # 3.6 (1.2-3.4); LYMPH % 26.9 % (20.0-51.0); MEAN CELL VOLUME 96 fl (80.0-100.0); MEAN CORPUSCULAR HEMOGLOBIN 32 pg (27.0-31.0); MEAN CORPUSCULAR HGB CONC 33 g/dl (33.0-37.0); MEAN PLATELET VOLUME 11.2 fl (7.4-10.4); MONO # 0.8 (0.1-0.6); MONO % 6.3 % (1.7-9.3); PLATELET COUNT 257 K/mm3 (130-400); RED BLOOD COUNT 4.17 M/mm3 (4.10-5.30); WHITE BLOOD COUNT 13.4 K/mm3 (4.8-10.8)
[2017-07-04 20:53] LABS: PH 6 (5-8); SQUAMOUS EPITHELIAL 0-2 /hpf; URINE APPEARANCE Clear; URINE BACTERIA None Seen /hpf; URINE BILIRUBIN Negative (NEGATIVE); URINE BLOOD Negative (NEGATIVE); URINE COLOR Yellow; URINE GLUCOSE Negative (NEGATIVE); URINE KETONE Negative (NEGATIVE); URINE LEUKOCYTE ESTERASE Negative (NEGATIVE); URINE PROTEIN(semi-quant) Negative (NEGATIVE); URINE RBC 0-2 /hpf; URINE UROBILINOGEN Negative (NEGATIVE); URINE WBC 0-2 /hpf
[2017-07-04 21:03] LABS: ADJUSTED CALCIUM 9.2 mg/dL (8.4-10.2); ALBUMIN 4.2 gm/dL (3.5-5.0); BILIRUBIN,TOTAL 0.6 mg/dL (0.0-1.0); C-REACTIVE PROTEIN 1.6 mg/dL (0.0-0.9); CALCIUM 9.4 mg/dL (8.4-10.2); CREATININE, serum 0.6 mg/dL (0.52-1.25); POTASSIUM 3.5 mmol/L (3.4-5.0); TOTAL PROTEIN 7.5 gm/dL (6.4-8.2)
[2017-07-04 22:07] VITALS: PULSE 88
== END 2017-07-04 22:08 | disposition home or self-care (01) ==
LOC: COL.ER 19:42
PROVIDERS: Nurse Practitioner
DX: K58.0 Irritable bowel syndrome with diarrhea (principal); K21.9 Gastro-esophageal reflux disease without esophagitis; F17.210 Nicotine dependence, cigarettes, uncomplicated; Z98.51 Tubal ligation status; Z90.49 Acquired absence of other specified parts of digestive tract
CPT/HCPCS: J1885; J2550

== ENCOUNTER 2017-07-12 21:32 | Emergency (ER) | payer SELFPAY ==
[~2017-07-12] VITALS: Ht 170.2 cm; Wt 97.3 kg
[2017-07-12 21:36] VITALS: TEMP 97.6
[2017-07-12] MEDS ORDERED: FLEXERIL 1010 MG/TAB PO (22:46)
[2017-07-12 22:55] VITALS: BP 113/70; PULSE 90
== END 2017-07-12 22:57 | disposition home or self-care (01) ==
LOC: COL.ER 21:32
DX: M54.6 Pain in thoracic spine (principal); G43.909 Migraine, unspecified, not intractable, without status migrainosus; E03.9 Hypothyroidism, unspecified; F17.210 Nicotine dependence, cigarettes, uncomplicated; F43.10 Post-traumatic stress disorder, unspecified; F32.9 Major depressive disorder, single episode, unspecified; F41.9 Anxiety disorder, unspecified; K58.9 Irritable bowel syndrome, unspecified; Z90.49 Acquired absence of other specified parts of digestive tract; Z98.51 Tubal ligation status
CPT/HCPCS: J1885; J2360

== ENCOUNTER 2017-08-02 09:44 | Emergency (ER) | payer SELFPAY ==
[~2017-08-02] VITALS: Ht 172.7 cm; Wt 97.3 kg
[2017-08-02 09:48] VITALS: BP 130/91; TEMP 98.2
[2017-08-02 10:37] LABS: COLLECTION METHOD CLEAN CATCH
[2017-08-02 10:49] LABS: BASO # 0.1 (0.0-0.2); BASO % 1.2 % (0.0-2.0); EOS # 0.3 (0.0-0.7); EOS % 2.7 % (0-4.0); GRAN # 7.6 (1.4-6.5); GRAN % 69.5 % (42.2-75.2); HEMATOCRIT 41.2 % (37.0-47.0); HEMOGLOBIN 13.7 g/dl (12.5-16.0); LYMPH # 2.1 (1.2-3.4); LYMPH % 19.1 % (20.0-51.0); MEAN CELL VOLUME 96 fl (80.0-100.0); MEAN CORPUSCULAR HEMOGLOBIN 32 pg (27.0-31.0); MEAN CORPUSCULAR HGB CONC 33 g/dl (33.0-37.0); MEAN PLATELET VOLUME 10.8 fl (7.4-10.4); MONO # 0.8 (0.1-0.6); PLATELET COUNT 250 K/mm3 (130-400); RED BLOOD COUNT 4.28 M/mm3 (4.10-5.30); REDCELL DISTRIBUTION WIDTH-CV 13.9 % (11.5-14.5)
[2017-08-02 10:55] LABS: MUCOUS Present /lpf; PH 7 (5-8); URINE APPEARANCE Hazy; URINE BACTERIA None Seen /hpf; URINE BILIRUBIN Negative (NEGATIVE); URINE BLOOD Negative (NEGATIVE); URINE COLOR Straw; URINE GLUCOSE Negative (NEGATIVE); URINE KETONE Negative (NEGATIVE); URINE LEUKOCYTE ESTERASE Negative (NEGATIVE); URINE NITRATE Negative (NEGATIVE); URINE PROTEIN(semi-quant) Negative (NEGATIVE); URINE RBC 0-2 /hpf; URINE UROBILINOGEN Negative (NEGATIVE)
[2017-08-02 11:02] LABS: ALBUMIN 4.5 gm/dL (3.5-5.0); BILIRUBIN,TOTAL 0.3 mg/dL (0.0-1.0); C-REACTIVE PROTEIN 1.7 mg/dL (0.0-0.9); CALCIUM 9.6 mg/dL (8.4-10.2); CREATININE, serum 0.67 mg/dL (0.52-1.25); POTASSIUM 4.2 mmol/L (3.4-5.0); TOTAL PROTEIN 7.8 gm/dL (6.4-8.2)
[2017-08-02 11:33] VITALS: PULSE 83
[2017-08-02] MEDS ORDERED: ULTRAM 50MG TAB50 MG PO (23:03)
== END 2017-08-02 11:35 | disposition home or self-care (01) ==
LOC: COL.ER 09:44
PROVIDERS: Nurse Practitioner
DX: R10.31 Right lower quadrant pain (principal)

== ENCOUNTER 2017-08-02 20:46 | Emergency (ER) | payer SELFPAY ==
[~2017-08-02] VITALS: Ht 172.7 cm; Wt 97.3 kg
[2017-08-02 20:49] VITALS: TEMP 98.2
[2017-08-02 21:42] LABS: BASO # 0.1 (0.0-0.2); EOS # 0.4 (0.0-0.7); EOS % 2.8 % (0-4.0); GRAN # 7.9 (1.4-6.5); GRAN % 62.2 % (42.2-75.2); HEMATOCRIT 39.7 % (37.0-47.0); HEMOGLOBIN 13.2 g/dl (12.5-16.0); LYMPH # 3.4 (1.2-3.4); LYMPH % 26.7 % (20.0-51.0); MEAN CELL VOLUME 96 fl (80.0-100.0); MEAN CORPUSCULAR HEMOGLOBIN 32 pg (27.0-31.0); MEAN CORPUSCULAR HGB CONC 33 g/dl (33.0-37.0); MONO # 0.9 (0.1-0.6); MONO % 6.7 % (1.7-9.3); PLATELET COUNT 263 K/mm3 (130-400); RED BLOOD COUNT 4.13 M/mm3 (4.10-5.30); REDCELL DISTRIBUTION WIDTH-CV 13.8 % (11.5-14.5)
[2017-08-02 21:54] LABS: ALBUMIN 4.2 gm/dL (3.5-5.0); BILIRUBIN,TOTAL 0.4 mg/dL (0.0-1.0); C-REACTIVE PROTEIN 1.4 mg/dL (0.0-0.9); CALCIUM 9.1 mg/dL (8.4-10.2); CREATININE, serum 0.94 mg/dL (0.52-1.25); POTASSIUM 3.6 mmol/L (3.4-5.0); TOTAL PROTEIN 7.4 gm/dL (6.4-8.2)
[2017-08-02] MEDS ORDERED: ULTRAM 50MG TAB50 MG PO (23:03)
[2017-08-02 23:20] VITALS: BP 137/85; PULSE 71
== END 2017-08-02 23:20 | disposition home or self-care (01) ==
LOC: COL.ER 20:46
PROVIDERS: Physician Assistant
DX: N83.201 Unspecified ovarian cyst, right side (principal); Z90.710 Acquired absence of both cervix and uterus
CPT/HCPCS: J1170; J1885; J2405; J7050; Q9967

== ENCOUNTER 2017-08-18 15:18 | Emergency (ER) | payer SELFPAY ==
[~2017-08-18] VITALS: Ht 172.7 cm; Wt 97.3 kg
[2017-08-18 15:30] VITALS: BP 142/76; TEMP 98.6
[2017-08-18 17:47] LABS: INFLUENZA A NEGATIVE; INFLUENZA B NEGATIVE
[2017-08-18 18:07] VITALS: PULSE 90
== END 2017-08-18 18:08 | disposition home or self-care (01) ==
LOC: COL.ER 15:18
PROVIDERS: Nurse Practitioner
DX: G43.909 Migraine, unspecified, not intractable, without status migrainosus (principal); F32.9 Major depressive disorder, single episode, unspecified; F41.9 Anxiety disorder, unspecified; F43.10 Post-traumatic stress disorder, unspecified; G89.29 Other chronic pain; F17.210 Nicotine dependence, cigarettes, uncomplicated; Z90.49 Acquired absence of other specified parts of digestive tract
CPT/HCPCS: J1200; J1885; J2765

== ENCOUNTER 2017-09-13 17:12 | Emergency (ER) | payer BC ==
[~2017-09-13] VITALS: Ht 172.7 cm; Wt 97.3 kg
[2017-09-13 17:14] VITALS: BP 134/80; TEMP 98.6
[2017-09-13 20:18] VITALS: PULSE 94
== END 2017-09-13 20:18 | disposition home or self-care (01) ==
LOC: COL.ER 17:12
DX: J02.9 Acute pharyngitis, unspecified (principal); G43.909 Migraine, unspecified, not intractable, without status migrainosus; F41.9 Anxiety disorder, unspecified; F32.9 Major depressive disorder, single episode, unspecified; F43.10 Post-traumatic stress disorder, unspecified; G89.29 Other chronic pain; F17.210 Nicotine dependence, cigarettes, uncomplicated

== ENCOUNTER 2017-09-24 15:58 | Emergency (ER) | payer SELFPAY ==
[~2017-09-24] VITALS: Ht 172.7 cm; Wt 97.3 kg
[2017-09-24 16:10] VITALS: TEMP 97.3
[2017-09-24] MEDS ORDERED: TYLENOL 500MG500 MG PO (17:05)
[2017-09-24 17:24] LABS: BASO # 0.1 (0.0-0.2); BASO % 0.9 % (0.0-2.0); EOS # 0.4 (0.0-0.7); EOS % 3.2 % (0-4.0); GRAN # 7.1 (1.4-6.5); GRAN % 64.2 % (42.2-75.2); HEMATOCRIT 38.8 % (37.0-47.0); HEMOGLOBIN 12.7 g/dl (12.5-16.0); LYMPH # 2.8 (1.2-3.4); LYMPH % 25.4 % (20.0-51.0); MEAN CELL VOLUME 97 fl (80.0-100.0); MEAN CORPUSCULAR HEMOGLOBIN 32 pg (27.0-31.0); MEAN CORPUSCULAR HGB CONC 33 g/dl (33.0-37.0); MEAN PLATELET VOLUME 10.9 fl (7.4-10.4); MONO # 0.7 (0.1-0.6); MONO % 5.9 % (1.7-9.3); PLATELET COUNT 243 K/mm3 (130-400); RED BLOOD COUNT 4.01 M/mm3 (4.10-5.30)
[2017-09-24 17:49] LABS: ALBUMIN 4.1 gm/dL (3.5-5.0); BILIRUBIN,TOTAL 0.4 mg/dL (0.0-1.0); CALCIUM 8.9 mg/dL (8.4-10.2); CREATININE, serum 0.65 mg/dL (0.52-1.25); POTASSIUM 3.6 mmol/L (3.4-5.0); TOTAL PROTEIN 7.4 gm/dL (6.4-8.2)
[2017-09-24] MEDS ORDERED: BENTYL 20MG20 MG/TAB PO (18:25)
[2017-09-24] MEDS ORDERED: PRILOSEC 20MG20 MG PO (18:25)
[2017-09-24 18:43] VITALS: BP 135/81; PULSE 90
== END 2017-09-24 18:45 | disposition home or self-care (01) ==
LOC: COL.ER 15:58
PROVIDERS: Emergency Medicine
DX: R10.13 Epigastric pain (principal); G43.909 Migraine, unspecified, not intractable, without status migrainosus; F43.10 Post-traumatic stress disorder, unspecified; F32.9 Major depressive disorder, single episode, unspecified; F41.9 Anxiety disorder, unspecified; F17.210 Nicotine dependence, cigarettes, uncomplicated; Z90.49 Acquired absence of other specified parts of digestive tract; Z98.51 Tubal ligation status

== ENCOUNTER 2017-11-25 11:05 | Emergency (ER) | payer SELFPAY ==
[~2017-11-25] VITALS: Ht 172.7 cm; Wt 95.9 kg
[~2017-11-25 11:05] MED LIST changes: +PRILOSEC 20MG20 MG PO; +TYLENOL 500MG500 MG PO
[2017-11-25 11:47] VITALS: BP 139/77; TEMP 98.6
[2017-11-25 12:20] VITALS: PULSE 89
== END 2017-11-25 12:25 | disposition home or self-care (01) ==
LOC: COL.ER 11:05
DX: M79.671 Pain in right foot (principal); M79.672 Pain in left foot; E03.9 Hypothyroidism, unspecified; F17.210 Nicotine dependence, cigarettes, uncomplicated; Z98.890 Other specified postprocedural states; Z88.2 Allergy status to sulfonamides; Z88.6 Allergy status to analgesic agent
CPT/HCPCS: J1885

== ENCOUNTER 2017-12-19 19:10 | Emergency (ER) | payer SELFPAY ==
[~2017-12-19] VITALS: Ht 172.7 cm; Wt 93.2 kg
[2017-12-19 19:11] VITALS: BP 136/74; TEMP 98.7
[2017-12-19 19:45] LABS: COLLECTION METHOD CLEAN CATCH
[2017-12-19 19:52] LABS: MUCOUS Present /lpf; PH 6 (5-8); SQUAMOUS EPITHELIAL 0-2 /hpf; URINE APPEARANCE Clear; URINE BACTERIA Rare /hpf; URINE BILIRUBIN Negative (NEGATIVE); URINE BLOOD 1+ (NEGATIVE); URINE COLOR Yellow; URINE GLUCOSE Negative (NEGATIVE); URINE KETONE Negative (NEGATIVE); URINE LEUKOCYTE ESTERASE Negative (NEGATIVE); URINE NITRATE Negative (NEGATIVE); URINE PROTEIN(semi-quant) Negative (NEGATIVE); URINE RBC 0-2 /hpf; URINE UROBILINOGEN Negative (NEGATIVE)
[2017-12-19 19:54] LABS: BASO # 0.2 (0.0-0.2); BASO % 1.4 % (0.0-2.0); EOS # 0.5 (0.0-0.7); EOS % 3.7 % (0-4.0); GRAN # 6.7 (1.4-6.5); GRAN % 53.7 % (42.2-75.2); HEMATOCRIT 40.4 % (37.0-47.0); HEMOGLOBIN 13.4 g/dl (12.5-16.0); LYMPH # 4.1 (1.2-3.4); LYMPH % 32.5 % (20.0-51.0); MEAN CELL VOLUME 96 fl (80.0-100.0); MEAN CORPUSCULAR HEMOGLOBIN 32 pg (27.0-31.0); MEAN CORPUSCULAR HGB CONC 33 g/dl (33.0-37.0); MEAN PLATELET VOLUME 10.9 fl (7.4-10.4); MONO % 8.1 % (1.7-9.3); PLATELET COUNT 286 K/mm3 (130-400); RED BLOOD COUNT 4.21 M/mm3 (4.10-5.30); REDCELL DISTRIBUTION WIDTH-CV 13.5 % (11.5-14.5)
[2017-12-19 20:08] LABS: ALBUMIN 3.9 gm/dL (3.5-5.0); BILIRUBIN,TOTAL 0.4 mg/dL (0.0-1.0); CALCIUM 9.4 mg/dL (8.4-10.2); CREATININE, serum 0.75 mg/dL (0.52-1.25); POTASSIUM 3.9 mmol/L (3.4-5.0); TOTAL PROTEIN 8.1 gm/dL (6.4-8.2)
[2017-12-19] MEDS ORDERED: NAPROSYN500 MG PO (21:11)
[2017-12-19] MEDS ORDERED: ZOFRAN ODT4 MG PO (21:11)
[2017-12-19 21:56] VITALS: PULSE 76
== END 2017-12-19 21:56 | disposition home or self-care (01) ==
LOC: COL.ER 19:10
PROVIDERS: Emergency Medicine
DX: R10.31 Right lower quadrant pain (principal); G43.909 Migraine, unspecified, not intractable, without status migrainosus; F43.10 Post-traumatic stress disorder, unspecified; E03.9 Hypothyroidism, unspecified; F17.210 Nicotine dependence, cigarettes, uncomplicated; Z90.49 Acquired absence of other specified parts of digestive tract
CPT/HCPCS: J1885; J2270; J2405; Q9967

== ENCOUNTER 2018-03-05 18:58 | Emergency (ER) | payer SELFPAY ==
[~2018-03-05] VITALS: Ht 172.7 cm; Wt 95.5 kg
[2018-03-05 19:01] VITALS: BP 141/83; TEMP 98.6
[2018-03-05 20:25] VITALS: PULSE 92
== END 2018-03-05 20:26 | disposition home or self-care (01) ==
LOC: COL.ER 18:58
DX: M25.511 Pain in right shoulder (principal); G43.909 Migraine, unspecified, not intractable, without status migrainosus; F43.10 Post-traumatic stress disorder, unspecified; G89.29 Other chronic pain; F17.210 Nicotine dependence, cigarettes, uncomplicated; Z98.890 Other specified postprocedural states; Z88.2 Allergy status to sulfonamides; Z88.6 Allergy status to analgesic agent; Z88.8 Allergy status to other drugs, medicaments and biological substances; X50.1XXA Overexertion from prolonged static or awkward postures, initial encounter; Y93.84 Activity, sleeping; Y92.009 Unspecified place in unspecified non-institutional (private) residence as the place of occurrence of the external cause
CPT/HCPCS: J1885

== ENCOUNTER 2018-06-18 15:03 | Emergency (ER) | payer OTHER ==
[~2018-06-18] VITALS: Ht 172.7 cm; Wt 95.5 kg
[~2018-06-18 15:03] MED LIST changes: +MACROBID 1100 MG/CAP PO
[2018-06-18 15:10] VITALS: BP 145/94; TEMP 98
[2018-06-18] MEDS ORDERED: NORCO 325 MG-51 TAB PO (17:05)
[2018-06-18] MEDS ORDERED: FLEXERIL5 MG PO (17:26)
[2018-06-18 17:42] VITALS: PULSE 91
== END 2018-06-18 17:44 | disposition home or self-care (01) ==
LOC: COL.ER 15:03
DX: S50.12XA Contusion of left forearm, initial encounter (principal); V89.2XXA Person injured in unspecified motor-vehicle accident, traffic, initial encounter

== ENCOUNTER 2018-09-21 22:02 | Emergency (ER) | payer SELFPAY ==
[~2018-09-21] VITALS: Ht 172.7 cm; Wt 99.5 kg
[~2018-09-21 22:02] MED LIST changes: +FLEXERIL5 MG PO
[2018-09-21 22:25] VITALS: TEMP 98.1
[2018-09-21 23:53] LABS: COLLECTION METHOD CLEAN CATCH
[2018-09-21 23:57] LABS: BASO # 0.1 (0.0-0.2); BASO % 1.1 % (0.0-2.0); EOS # 0.4 (0.0-0.7); EOS % 3.2 % (0-4.0); GRAN # 6.3 (1.4-6.5); HEMATOCRIT 38.3 % (37.0-47.0); HEMOGLOBIN 12.6 g/dl (12.5-16.0); LYMPH # 3.4 (1.2-3.4); LYMPH % 31.1 % (20.0-51.0); MEAN CELL VOLUME 98 fl (80.0-100.0); MEAN CORPUSCULAR HEMOGLOBIN 32 pg (27.0-31.0); MEAN CORPUSCULAR HGB CONC 33 g/dl (33.0-37.0); MEAN PLATELET VOLUME 11.6 fl (7.4-10.4); MONO # 0.8 (0.1-0.6); MONO % 7.2 % (1.7-9.3); PLATELET COUNT 248 K/mm3 (130-400); RED BLOOD COUNT 3.92 M/mm3 (4.10-5.30); REDCELL DISTRIBUTION WIDTH-CV 14.2 % (11.5-14.5)
[2018-09-22 00:07] LABS: MUCOUS Present /lpf; PH 5 (5-8); SQUAMOUS EPITHELIAL 0-2 /hpf; URINE APPEARANCE Hazy; URINE BACTERIA None Seen /hpf; URINE BILIRUBIN Negative (NEGATIVE); URINE BLOOD Negative (NEGATIVE); URINE COLOR Yellow; URINE GLUCOSE Negative (NEGATIVE); URINE KETONE Negative (NEGATIVE); URINE LEUKOCYTE ESTERASE Negative (NEGATIVE); URINE NITRATE Negative (NEGATIVE); URINE PROTEIN(semi-quant) Negative (NEGATIVE); URINE RBC 0-2 /hpf; URINE UROBILINOGEN Negative (NEGATIVE)
[2018-09-22 00:11] LABS: ALBUMIN 3.9 gm/dL (3.5-5.0); BILIRUBIN,TOTAL 0.4 mg/dL (0.0-1.0); CALCIUM 9.4 mg/dL (8.4-10.2); CREATININE, serum 0.64 mg/dL (0.52-1.25); POTASSIUM 3.3 mmol/L (3.4-5.0); TOTAL PROTEIN 7.2 gm/dL (6.4-8.2)
[2018-09-22 01:10] VITALS: BP 140/87; PULSE 81
== END 2018-09-22 01:10 | disposition home or self-care (01) ==
LOC: COL.ER 22:02
PROVIDERS: Emergency Medicine
DX: R10.9 Unspecified abdominal pain (principal); K58.9 Irritable bowel syndrome, unspecified; F17.210 Nicotine dependence, cigarettes, uncomplicated; Z98.51 Tubal ligation status; Z90.49 Acquired absence of other specified parts of digestive tract
CPT/HCPCS: J2765; J3010; J7030

== ENCOUNTER 2018-12-24 16:00 | Emergency (ER) | payer SELFPAY ==
[~2018-12-24] VITALS: Ht 172.7 cm; Wt 94.5 kg
[2018-12-24 16:13] VITALS: TEMP 98.8
[2018-12-24 18:07] VITALS: BP 136/91; PULSE 76
== END 2018-12-24 18:10 | disposition home or self-care (01) ==
LOC: COL.ER 16:00
DX: G43.909 Migraine, unspecified, not intractable, without status migrainosus (principal); F17.210 Nicotine dependence, cigarettes, uncomplicated; Z88.2 Allergy status to sulfonamides; Z88.5 Allergy status to narcotic agent
CPT/HCPCS: J1885; J2550; J3010

== ENCOUNTER 2019-02-09 19:00 | Emergency (ER) | payer SELFPAY ==
[~2019-02-09] VITALS: Ht 172.7 cm; Wt 96.5 kg
[2019-02-09 19:11] VITALS: TEMP 97.6
[2019-02-09] MEDS ORDERED: VOLTAREN GEL 1%1 TU TP (21:31)
[2019-02-09] MEDS ORDERED: NAPROSYN500 MG PO (21:31)
[2019-02-09] MEDS ORDERED: CELEBREX 200MG200 MG PO (22:48)
[2019-02-09 23:39] VITALS: BP 158/91; PULSE 84
== END 2019-02-09 23:39 | disposition home or self-care (01) ==
LOC: COL.ER 19:00
DX: M25.531 Pain in right wrist (principal); G89.29 Other chronic pain; F43.10 Post-traumatic stress disorder, unspecified; G43.909 Migraine, unspecified, not intractable, without status migrainosus; F17.210 Nicotine dependence, cigarettes, uncomplicated; Z98.51 Tubal ligation status; Z90.49 Acquired absence of other specified parts of digestive tract; Z88.5 Allergy status to narcotic agent
CPT/HCPCS: J1885

== ENCOUNTER 2019-03-03 11:58 | Emergency (ER) | payer SELFPAY ==
[~2019-03-03] VITALS: Ht 172.7 cm; Wt 96.4 kg
[~2019-03-03 11:58] MED LIST changes: +CELEBREX 200MG200 MG PO; +VOLTAREN GEL 1%1 TU TP
[2019-03-03 12:05] VITALS: BP 137/84
[2019-03-03] MEDS ORDERED: TYLENOL 325MG325 MG PO (12:27)
[2019-03-03 12:32] LABS: COLLECTION METHOD CLEAN CATCH
[2019-03-03 12:37] LABS: PH 6 (5-8); SQUAMOUS EPITHELIAL 0-2 /hpf; URINE APPEARANCE Clear; URINE BACTERIA None Seen /hpf; URINE BILIRUBIN Negative (NEGATIVE); URINE BLOOD Negative (NEGATIVE); URINE COLOR Yellow; URINE GLUCOSE Negative (NEGATIVE); URINE KETONE Negative (NEGATIVE); URINE LEUKOCYTE ESTERASE Negative (NEGATIVE); URINE NITRATE Negative (NEGATIVE); URINE PROTEIN(semi-quant) Negative (NEGATIVE); URINE RBC 0-2 /hpf; URINE UROBILINOGEN Negative (NEGATIVE)
[2019-03-03 14:10] LABS: BASO # 0.1 (0.0-0.2); BASO % 1.1 % (0.0-2.0); EOS # 0.4 (0.0-0.7); EOS % 3.2 % (0-4.0); GRAN # 7.1 (1.4-6.5); GRAN % 61.2 % (42.2-75.2); HEMATOCRIT 39.7 % (37.0-47.0); HEMOGLOBIN 13.2 g/dl (12.5-16.0); LYMPH # 3.2 (1.2-3.4); LYMPH % 27.4 % (20.0-51.0); MEAN CELL VOLUME 97 fl (80.0-100.0); MEAN CORPUSCULAR HEMOGLOBIN 32 pg (27.0-31.0); MEAN CORPUSCULAR HGB CONC 33 g/dl (33.0-37.0); MEAN PLATELET VOLUME 11.2 fl (7.4-10.4); MONO # 0.8 (0.1-0.6); MONO % 6.5 % (1.7-9.3); PLATELET COUNT 240 K/mm3 (130-400); REDCELL DISTRIBUTION WIDTH-CV 13.7 % (11.5-14.5)
[2019-03-03 14:38] LABS: ALBUMIN 3.9 gm/dL (3.5-5.0); BILIRUBIN,TOTAL 0.3 mg/dL (0.0-1.0); C-REACTIVE PROTEIN 2.2 mg/dL (0.0-0.9); CREATININE, serum 0.61 (0.52-1.25); POTASSIUM 3.6 mmol/L (3.4-5.0); TOTAL PROTEIN 7.2 gm/dL (6.4-8.2)
[2019-03-03 15:15] VITALS: PULSE 85; TEMP 98.1
== END 2019-03-03 15:15 | disposition home or self-care (01) ==
LOC: COL.ER 11:58
PROVIDERS: Nurse Practitioner
DX: R10.31 Right lower quadrant pain (principal); K58.9 Irritable bowel syndrome, unspecified; Z90.49 Acquired absence of other specified parts of digestive tract; Z98.51 Tubal ligation status; Z88.2 Allergy status to sulfonamides; Z88.5 Allergy status to narcotic agent; F17.210 Nicotine dependence, cigarettes, uncomplicated

== ENCOUNTER 2019-05-08 19:31 | Emergency (ER) | payer SELFPAY ==
[~2019-05-08 19:31] MED LIST changes: +TYLENOL 325MG325 MG PO
== END 2019-05-08 20:00 | disposition left against medical advice (07) ==
LOC: COL.ER 19:31
DX: Z72.9 Problem related to lifestyle, unspecified (principal)

== ENCOUNTER 2019-06-05 16:25 | Emergency (ER) | payer SELFPAY ==
[~2019-06-05] VITALS: Ht 172.7 cm; Wt 96.4 kg
[2019-06-05 16:36] VITALS: BP 191/96
[2019-06-05 18:16] VITALS: PULSE 78; TEMP 98.2
== END 2019-06-05 18:16 | disposition home or self-care (01) ==
LOC: COL.ER 16:25
DX: R51 Headache (principal); F32.9 Major depressive disorder, single episode, unspecified; F41.9 Anxiety disorder, unspecified; E03.9 Hypothyroidism, unspecified; F43.10 Post-traumatic stress disorder, unspecified; F17.210 Nicotine dependence, cigarettes, uncomplicated; Z90.49 Acquired absence of other specified parts of digestive tract
CPT/HCPCS: J1200; J2550

== ENCOUNTER 2019-06-23 10:00 | Emergency (ER) | payer SELFPAY ==
[~2019-06-23] VITALS: Ht 172.7 cm; Wt 96.4 kg
[2019-06-23 10:02] VITALS: BP 135/80
[2019-06-23] MEDS ORDERED: CEPHALEXIN500 M1 PO (10:16)
[2019-06-23] MEDS ORDERED: DOXYCYCLINE 10100 MG PO (11:12)
[2019-06-23 11:33] VITALS: PULSE 118; TEMP 98.4
== END 2019-06-23 11:33 | disposition home or self-care (01) ==
LOC: COL.ER 10:00
DX: L02.31 Cutaneous abscess of buttock (principal); E03.9 Hypothyroidism, unspecified; G43.909 Migraine, unspecified, not intractable, without status migrainosus; K58.9 Irritable bowel syndrome, unspecified; F43.10 Post-traumatic stress disorder, unspecified; F41.9 Anxiety disorder, unspecified; F17.210 Nicotine dependence, cigarettes, uncomplicated; Z23 Encounter for immunization

== ENCOUNTER 2024-03-18 20:08 | Emergency (ER) | payer SELFPAY ==
[~2024-03-18] VITALS: Ht 172.7 cm; Wt 106.4 kg
[2024-03-18 20:16] VITALS: TEMP 98.4
[2024-03-18] MEDS ORDERED: traMADol 50 MG TAB PO ONE (20:30)
[2024-03-18] MEDS ORDERED: Cyclobenzaprine 10 MG TAB PO ONE (20:30)
[2024-03-18] MEDS ORDERED: Acetaminophen 500 MG TAB PO ONE (20:30)
[2024-03-18 21:00] VITALS: BP 146/84; PULSE 81
== END 2024-03-18 20:34 | disposition home or self-care (01) ==
LOC: COL.ER 20:08
DX: G89.29 Other chronic pain (principal); M25.511 Pain in right shoulder